=== PATIENT | female | born 1940 | race Caucasian/White ===

== ENCOUNTER 2016-10-24 20:02 | Inpatient (IN) | payer MEDICARE, OTHER ==
[~2016-10-24] VITALS: Ht 157.5 cm; Wt 69.9 kg
--- NOTE | 2016-10-24 20:02 | NUR ---
Patient to ER bed 01 to gown for evaluation. Side rails up. Report given to Sabino.
--- NOTE | 2016-10-24 20:04 | NUR ---
Note isabelyony in EDM - 10/24/16 at 2159 by LY Pt brought by ambulance from [facility] care facility, pt sent due to abnormal labs, pt currently treated for UTI with ABTs, non verbal, eyes open, responsive to touch, pt has trach O2 96%, G-tube intact, pedal pulses equal and strong, pt arrived with 20 gauge IV on L hand intact, VSS.
--- NOTE | 2016-10-24 20:04 | NUR ---
Pt brought by ambulance from extended care facility, pt sent due to abnormal labs, pt currently treated for UTI with ABTs, non verbal, eyes open, responsive to touch, pt has trach O2 96%, G-tube intact, pedal pulses equal and strong, pt arrived with 20 gauge IV on L hand intact, VSS.
--- NOTE | 2016-10-24 20:04 | NUR ---
Note anat in EDM - 10/24/16 at 2158 by LY Pt brought by ambulance from [facility] care facility, pt sent due to abnormal labs, pt currently treated for UTI with ABTs, non verbal, eyes open, responsive to touch, pt has trach O2 96%, G-tube intact, pedal pulses equal and strong, pt arrived with 20 gauge IV on L hand intact, VSS.
[2016-10-24 20:05] VITALS: BP 170/97; PULSE 73; RESP 23; TEMP 97.2; O2SAT 96
--- NOTE | 2016-10-24 20:15 | NUR ---
Allie hallyony in [facility] - 10/24/16 at [address] Rivera at bedside examining patient
--- NOTE | 2016-10-24 20:15 | NUR ---
Dr Rivera at bedside examining patient
[2016-10-24] MEDS ORDERED: ATOR20TA64 PO (20:45)
[2016-10-24] MEDS ORDERED: AMI200 PO (20:45)
[2016-10-24] MEDS ORDERED: FAMO20TA98 PO (20:45)
[2016-10-24] MEDS ORDERED: NITR-85 PO (20:45)
[2016-10-24] MEDS ORDERED: ASPI81TA2 PO (20:45)
[2016-10-24] MEDS ORDERED: INSU100V9 SUBCUT (20:45)
[2016-10-24] MEDS ORDERED: DOCU-144 PO (20:45)
[2016-10-24] MEDS ORDERED: LACT1CAP61 PO (20:45)
[2016-10-24] MEDS ORDERED: CARV3.1246 PO (20:45)
[2016-10-24] MEDS ORDERED: NACL 0.9% 1,000 ML IV ONE (21:01)
[2016-10-24 21:17] LABS: HEMATOCRIT 32.1 % (36-48); HEMOGLOBIN 10.9 g/dL (12.0-16.0); MEAN CORPUSCULAR HEMOGLOBIN 31 pg (27-31); MEAN CORPUSCULAR HGB CONC 34 % (32-36); MEAN CORPUSCULAR VOLUME 90 fL (79.0-98.0); PLATELET COUNT (AUTO) 140 K/uL (130-430); RED BLOOD CELL COUNT(AUTO) 3.56 MIL/uL (4.2-6.2); WHITE BLOOD COUNT (AUTO) 6.3 K/uL (4.8-10.8)
[2016-10-24 21:19] LABS: ANION GAP 7 (5-15); CHLORIDE 98 mmol/L (98-107); CREATININE 2.35 mg/dL (0.55-1.30); GLUCOSE 334 mg/dL (70-99); POTASSIUM 4.3 mmol/L (3.5-5.1); SODIUM SERUM 131 mmol/L (136-145); UREA NITROGEN, BLOOD 89 mg/dL (8-21)
[2016-10-24 21:22] LABS: PROTHROMBIN TIME 10.8 SECS (9.5-12.5)
[2016-10-24 21:34] LABS: ALANINE AMINOTRANSFERASE 31 U/L (12-78); ALBUMIN 1.7 g/dL (3.4-4.8); ASPARTATE AMINOTRANSFERASE 38 U/L (10-37); TOTAL BILIRUBIN 0.2 mg/dL (0.0-1.0); TOTAL PROTEIN, SERUM 7.4 g/dL (6.4-8.3)
[2016-10-24 21:45] LABS: BILIRUBIN,URINE NEGATIVE (NEGATIVE); BLOOD, URINE 3+ (NEGATIVE); CLARITY/URINE CLOUDY (CLEAR); COLOR,URINE YELLOW (YELLOW); GLUCOSE,URINE 2+ (NEGATIVE); KETONES,URINE NEGATIVE (NEGATIVE); LEUKOCYTE ESTERASE ,URINE 3+ (NEGATIVE); NITRITE, URINE NEGATIVE (NEGATIVE); PH,URINE 5.5 (5.0-8.0); PROTEIN URINE 1+ (NEGATIVE); UROBILINOGEN,URINE 0.2 (0.2-1.0)
[2016-10-24] MEDS ORDERED: INSULIN REGULAR, HUMAN 10 UNITS/0.1 ML INJ IVP ONE (22:00)
[2016-10-24 22:02] LABS: ATYPICAL LYMPHOCYTES % 0 % (0-0); BAND % (MANUAL) 1 % (0-6); BASOPHILS % (MANUAL) 0 % (0-2); EOSINOPHILS % (MANUAL) 0 % (0-7); LYMPHOCYTES % (MANUAL) 12 % (20-46); MONOCYTES % (MANUAL) 12 % (0-11)
--- NOTE | 2016-10-24 22:30 | NUR ---
16# FR Merino catheter with use of sterile technique. Immediate return of 100cc urine noted. Bedside drainage bag placed below level of bladder. Urine sample collected and sent to lab. Pt tolerated procedure . Patient arrived with merino in place, changed due to standard of practice prior to admission. Patient unable to toilet self.
--- NOTE | 2016-10-24 22:41 | NUR ---
Pt suction by RT, procedure well tolerated
--- NOTE | 2016-10-24 23:11 | NUR ---
Note anat in ED - 10/25/16 at 0134 by LY Patient will be admitted to care of Dr. East. Ad[facility] to Med[facility] Summary report printed. Report given to Rinku RAMÍREZ.
[2016-10-24] MEDS ORDERED: cefTRIAXone 1 GM IVPB PREMIX 50 ML IV ONE (23:15)
[2016-10-24 23:29] LABS: BACTERIA,URINE MODERATE /HPF (None Seen)
[2016-10-24 23:30] LABS: MUCUS,URINE None Seen /LPF (None Seen); URINE AMORPHOUS URATE 3+ /HPF (None Seen)
[2016-10-24] MEDS ORDERED: INSULIN REGULAR, HUMAN 100 UNITS/ML, 10 ML VIAL (novoLIN R) SUBCUT PRN (23:30)
[2016-10-24] MEDS ORDERED: NS 500 ML IV ONE (23:30)
--- NOTE | 2016-10-24 23:56 | NUR ---
Pt on stable condition, VSS, skin pink and warm, resposive to touch, Report given to Jarrod RAMÍREZ
[2016-10-25 00:21] VITALS: BP 148/65; PULSE 73; RESP 18; TEMP 98.6; O2SAT 96
--- NOTE | 2016-10-25 00:21 | NUR ---
ADMISSION NOTE: Received patient from ER via gurney under the care of Dr. East. Patient admitted with diagnosis of Acute Renal Failure . Patient is awake, alert to name and able to follow simple instructions . Patient oriented to hospital room, call light, but doesn't shows full understanding. No indication of pain or discomfort. Call light within reach.
--- NOTE | 2016-10-25 00:28 | NUR ---
Patient will be admitted to care of Dr. East. Admitted to Medsurg unit. Will go to room 102B. Summary report printed. Report given to Rinku RAMÍREZ.
--- NOTE | 2016-10-25 01:00 | NUR ---
ADMISSION ASSESSMENT PT. IS ALERT. NONVERBAL, TRACH. 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 LT. UPPER EXTREMITY HEMIPARESIS NOTED. TRACH R/A WITH O2 SAT. 96%. NO SOB NOTED @ THIS TIME. HAS G-TUBE CLAMPED. SITE IS CLEAR. FLUSHED AND IS PATENT. HAS F.CATH. CLEAR YELLOW URINE. CALL LIGHT WITHIN EASY ACCESS. NO DISTRESS NOTED @ THIS TIME.
--- NOTE | 2016-10-25 03:05 | NUR ---
ROUNDS PT. CONTINUE ON TRACH TO R/A. O2 SAT. IS 95%. NO RESPIRATORY DISTRESS NOTED @ THIS TIME.
[2016-10-25 04:19] VITALS: BP 138/62; PULSE 68; RESP 18; TEMP 98.6; O2SAT 99
--- NOTE | 2016-10-25 04:43 | NUR ---
PATIENT RESTING: Patient resting quietly. No acute distress noted. Vital signs within normal range.
--- NOTE | 2016-10-25 06:15 | NUR ---
BLOOD SUGAR 179 RECEIVED REGULAR INSULIN 2 UNITS SC.
--- NOTE | 2016-10-25 06:45 | NUR ---
CLOSING NOTES PT. NONVERBAL. CONTINUE WITH TRACH. R/A O2 SAT. 96%. NO SOB NOTED. SUCTIONED X1 THICK YELLOW SECRETIONS. HAS IV LT. HAND 24G WITH 0.9NS INFUSING @ 80ML/HR. SITE IS CLEAR. G-TUBE IS CLAMPED. NO DISTRESS NOTED @ THIS TIME. CALL LIGHT WITHIN EASY ACCESS.
--- NOTE | 2016-10-25 08:00 | NUR ---
received awake and in no discomfort.vss.turned and repositioned.fed breakfast but intake poor.lt hemiparesis noted.iv infusing.ra sat 96.trach intact and drsg.gtube clamped.merino with richard urine.continue to monitor and assist as needed
--- NOTE | 2016-10-25 08:00 | NUR ---
received awake and in no distress vss repositioned for breakfast g tub clamped and trach intact.merino patent.continue to monitor
[2016-10-25 08:41] LABS: BASOPHILS % (AUTO) 0.2 % (0.0-2.0); EOSINOPHILS # (AUTO) 0.1 K/uL (0.0-0.4); EOSINOPHILS % (AUTO) 0.7 % (0.0-4.0); HEMATOCRIT 32.2 % (36-48); HEMOGLOBIN 10.8 g/dL (12.0-16.0); LYMPHOCYTES # (AUTO) 0.7 K/uL (1.0-5.5); LYMPHOCYTES % (AUTO) 9.8 % (20.5-51.5); MEAN CORPUSCULAR HEMOGLOBIN 30 pg (27-31); MEAN CORPUSCULAR HGB CONC 34 % (32-36); MEAN CORPUSCULAR VOLUME 89 fL (79.0-98.0); MONOCYTES # (AUTO) 0.8 K/uL (0.0-1.0); MONOCYTES % (AUTO) 11.2 % (1.7-9.3); NEUTROPHILS # (AUTO) 5.8 K/uL (1.8-7.7); NEUTROPHILS % (AUTO) 78.1 % (40.0-70.0); PLATELET COUNT (AUTO) 143 K/uL (130-430); RED BLOOD CELL COUNT(AUTO) 3.61 MIL/uL (4.2-6.2); RED CELL DISTRIBUTION WIDTH 15.6 % (9.0-15.0); WHITE BLOOD COUNT (AUTO) 7.4 K/uL (4.8-10.8)
[2016-10-25 08:58] LABS: ANION GAP 7 (5-15); CALCIUM 9.3 mg/dL (8.4-11.0); CHLORIDE 105 mmol/L (98-107); GLUCOSE 162 mg/dL (70-99); POTASSIUM 4.2 mmol/L (3.5-5.1); SODIUM SERUM 139 mmol/L (136-145); UREA NITROGEN, BLOOD 78 mg/dL (8-21)
--- NOTE | 2016-10-25 09:36 | NUR ---
Nutrition Update Olvin Scale 14 noted. Pt admitted for ARF. Diet: [facility] BMI: N/A RD to follow per nutrition care standards.
[2016-10-25] MEDS ORDERED: MORPHINE 2 MG/ML INJ. SYRINGE IVP PRN (12:00)
[2016-10-25] MEDS ORDERED: POTASSIUM CHLORIDE 10 MEQ TAB.PRT.SR PO PRN (12:00)
[2016-10-25] MEDS ORDERED: ACETAMINOPHEN 325 MG TABLET PO PRN (12:00)
[2016-10-25] MEDS ORDERED: ZOLPIDEM TARTRATE 5 MG TABLET PO PRN (12:00)
[2016-10-25] MEDS ORDERED: DOCUSATE SODIUM 100 MG CAPSULE PO PRN (12:00)
[2016-10-25] MEDS ORDERED: LORazepam 2 MG/ML VIAL IVP PRN (12:00)
[2016-10-25] MEDS ORDERED: MAGNESIUM SULFATE 50 ML IV PRN (12:00)
[2016-10-25] MEDS ORDERED: ONDANSETRON HCL 4 MG/2 ML VIAL IVP PRN (12:00)
[2016-10-25] MEDS ORDERED: DEXTROSE 50% JECT 50 ML DISP.SYRIN IVP PRN (12:00)
[2016-10-25 12:36] VITALS: BP 172/95; PULSE 74; RESP 19; TEMP 97.6; O2SAT 98
[2016-10-25 16:14] VITALS: BP 166/75; PULSE 68; RESP 18; TEMP 97.8; O2SAT 99
--- NOTE | 2016-10-25 16:38 | NUR ---
NEPHROLOGY CONSULT Spoke with Valentina regarding request for consultation with Dr. Gauthier ([phone]) for reason: CHANDA
--- NOTE | 2016-10-25 17:16 | NUR ---
RT CALLED TO ASSIST WITH TRACH.SHE IS NOT ON THEIR LIST BUT TRACH CARE DONE.PT IN NO DISTRESS.TO RECEIVE PUREED DIET FOR DINNER.FAMILY AT BEDSIDE TO ASSIST WITH FEEDING.TURNED Q2H AND NO COMPLAINT OF PAIN
[2016-10-25] MEDS: NACL 0.9% 1,000 ML IV SCH (18:21)
[2016-10-25 20:10] VITALS: BP 156/86; PULSE 69; RESP 18; TEMP 97.8; O2SAT 99
--- NOTE | 2016-10-25 20:10 | NUR ---
INITIAL NOTES: PT IS AWAKE, NOT IN ANY ACUTE DISTRESS; VITALS ARE STABLE ; WILL RECHECK BP LATER ; PERSIAN SPEAKING; NOTICED THAT PT IS ABLE TO MOVE HER MARY ARMS AND R LEG ; BUT WEAK ; ASSESSMENT DONE ; PT HAS TRACH -TO ROOM AIR ; PT ISSATING WELL ; G TUBE IS CLAMPED ; PT IS ABLE TO TAKE PUREED DIET ; BED IN LOW AND LOCK POSITION ; BED ALARM IS ON .CALL LOMBARDO IN REACH; INSTRUCTED TO CALL FOR ANY HELP; WILL CONTINUE TO MONITOR.
[2016-10-25] MEDS: DOCUSATE SODIUM 100 MG CAPSULE PO SCH (20:50)
[2016-10-25] MEDS: CARVEDILOL 3.125 MG TABLET (COREG) PO SCH (20:51)
[2016-10-25] MEDS: ATORVASTATIN 20 MG TABLET PO SCH (20:51)
[2016-10-25] MEDS: HEPARIN SODIUM,PORCINE 5000 UNITS/ML VIAL SUBCUT SCH (20:52)
[2016-10-25] MEDS: INSULIN ASPART 100 UNITS/ML, 10 ML VIAL (NovoLOG) SUBCUT PRN (20:54)
--- NOTE | 2016-10-25 21:00 | NUR ---
MEDICATION: DUE MEDS CRUSHED AND GIVEN WITH APPLE SAUCE ; PT IS COMFORTABLE ;NOT IN ANY ACUTE DISTRESS; SON AT BEDSIDE ; WILL CONTINUE TO MONITOR.
[2016-10-25] MEDS: cefTRIAXone 1 GM in D5W 50 ML IV SCH (22:24)
--- NOTE | 2016-10-25 23:00 | NUR ---
RN NOTES: PT IS COMFORTABLE ; NOT IN ANY DISTRESS; VITALS ARE STABLE ; WILL CONTINUE TO MONITOR.
[2016-10-26] VITALS: BP 118/70; PULSE 63; RESP 16; TEMP 98.7; O2SAT 96
--- NOTE | 2016-10-26 01:00 | NUR ---
RN ROUNDS: PT IS SLEEPING; NOT IN ANY ACUTE DISTRESS; WILL CONTINUE TO MONITOR.
--- NOTE | 2016-10-26 03:00 | NUR ---
RN ROUNDS: PT IS SLEEPING; NOT IN ANY DISTRESS; WILL CONTINUE TO MONITOR.
[2016-10-26 04:21] VITALS: BP 120/74; PULSE 62; RESP 16; TEMP 97.8; O2SAT 98
--- NOTE | 2016-10-26 05:04 | NUR ---
SPONGE BATH: SPONGE BATH AND PERICARE GIVEN ; LINEN AND GOWN CHANGED ; PT TURNED AND REPOSITIONED; WILL CONTINUE TO MONITOR.
--- NOTE | 2016-10-26 06:00 | NUR ---
RN NOTES: BS 89, NO INSULIN COVERAGE NEEDED ; PT IS COMFORTABLE .
[2016-10-26] MEDS: INSULIN ASPART 100 UNITS/ML, 10 ML VIAL (NovoLOG) SUBCUT PRN ×4 (06:09→20:51)
[2016-10-26 07:15] LABS: BASOPHILS % (AUTO) 0.2 % (0.0-2.0); EOSINOPHILS # (AUTO) 0.2 K/uL (0.0-0.4); EOSINOPHILS % (AUTO) 1.6 % (0.0-4.0); HEMOGLOBIN 10.5 g/dL (12.0-16.0); LYMPHOCYTES % (AUTO) 9.9 % (20.5-51.5); MEAN CORPUSCULAR HEMOGLOBIN 30 pg (27-31); MEAN CORPUSCULAR HGB CONC 33 % (32-36); MEAN CORPUSCULAR VOLUME 92 fL (79.0-98.0); MONOCYTES # (AUTO) 0.9 K/uL (0.0-1.0); MONOCYTES % (AUTO) 9.8 % (1.7-9.3); NEUTROPHILS # (AUTO) 7.6 K/uL (1.8-7.7); NEUTROPHILS % (AUTO) 78.5 % (40.0-70.0); PLATELET COUNT (AUTO) 156 K/uL (130-430); RED BLOOD CELL COUNT(AUTO) 3.48 MIL/uL (4.2-6.2); RED CELL DISTRIBUTION WIDTH 16.6 % (9.0-15.0)
[2016-10-26 07:25] LABS: WHITE BLOOD COUNT (AUTO) 9.7 K/uL (4.8-10.8)
--- NOTE | 2016-10-26 07:25 | NUR ---
CLOSING NOTES: REPORT GIVEN TO RN AT BEDSIDE , PT IS SLEEPING, NOT IN ANY ACUTE DISTRESS; NO SIGNIFICANT CHANGES IN THE CONDITION.
[2016-10-26 07:26] LABS: ANION GAP 7 (5-15); CALCIUM 9.2 mg/dL (8.4-11.0); CHLORIDE 107 mmol/L (98-107); CREATINE KINASE, TOTAL 28 U/L (26-192); CREATININE 1.69 mg/dL (0.55-1.30); GLUCOSE 91 mg/dL (70-99); POTASSIUM 4.1 mmol/L (3.5-5.1); SODIUM SERUM 141 mmol/L (136-145); UREA NITROGEN, BLOOD 61 mg/dL (8-21)
[2016-10-26 08:00] VITALS: BP 165/75; PULSE 60; RESP 18; TEMP 98; O2SAT 97
--- NOTE | 2016-10-26 08:00 | NUR ---
initial notes rec patient awake , alert non verbally responsive but follows command. hob elevated with a trache and no sob noted. pt was suctioned with small amount of whitish phlegm noted. resp easy and unlabored. bed in low position and side rails up and locked. call light within reached.fall/safety measures reinforced. will continue to monitor patient.
[2016-10-26] MEDS: DOCUSATE SODIUM 100 MG CAPSULE PO SCH ×2 (10:04→20:26)
[2016-10-26] MEDS: CARVEDILOL 3.125 MG TABLET (COREG) PO SCH ×2 (10:04→20:25)
[2016-10-26] MEDS: AMIODARONE HCL 200 MG TABLET PO SCH (10:05)
[2016-10-26] MEDS: HEPARIN SODIUM,PORCINE 5000 UNITS/ML VIAL SUBCUT SCH ×2 (10:07→20:48)
--- NOTE | 2016-10-26 10:30 | NUR ---
rounds due meds given as ordered. gt is clamped and with 10 cc residual only. turned repositioned for comfort.
[2016-10-26 12:31] VITALS: BP 155/74; PULSE 62; RESP 20; TEMP 97.5; O2SAT 95
--- NOTE | 2016-10-26 13:00 | NUR ---
rounds no hypo hyperglycemic reaction noted. no sob noted. suctioned patient.
[2016-10-26 13:26] VITALS: Ht 157.5 cm; Wt 69.9 kg
--- NOTE | 2016-10-26 14:00 | NUR ---
rounds turned repositi.oned for comfort. was transferred to an air loss bed to prevent skin breakdown. resting comfortably
--- NOTE | 2016-10-26 15:58 | NUR ---
rounds resting quietly at this time. no sob noted.. sleeping at intervals.
[2016-10-26 16:01] VITALS: BP 124/58; PULSE 69; RESP 18; TEMP 97.2; O2SAT 92
--- NOTE | 2016-10-26 18:00 | NUR ---
rounds no hypo hyperglycemic reaction noted. sleeps at intervals. gt site was cleaned with ns and applied drain sponge.
[2016-10-26] MEDS: NACL 0.9% 1,000 ML IV SCH (18:57)
--- NOTE | 2016-10-26 19:00 | NUR ---
closing notes dr coker was notified re mrsa of the nares and with order. daughter at the bedside and informed by mary re the mrsa. no sob noted. on contact isolation
--- NOTE | 2016-10-26 19:02 | NUR ---
paged for Dr East, dialed . s/w [place].
[2016-10-26 20:00] VITALS: BP 178/80; PULSE 67; RESP 17; TEMP 97.1; O2SAT 97
--- NOTE | 2016-10-26 20:04 | NUR ---
opening note received report from day shift RN. Patient is alert and oriented X2, in supine position, call light within reach, friend participating in care at bedside. No complaints of pain at this time, BP 178/80, HR67, T96.9, RR 15 non-labored and normal depth. frequent visual checks to be made, continue to monitor
[2016-10-26] MEDS: ATORVASTATIN 20 MG TABLET PO SCH (20:25)
[2016-10-26] MEDS: MUPIROCIN 2% TOPICAL OINTMENT 22 GM TP SCH (20:52)
[2016-10-26] MEDS: cefTRIAXone 1 GM in D5W 50 ML IV SCH (22:15)
--- NOTE | 2016-10-26 22:29 | NUR ---
rounds Patient is in supine position, turned to left, supported with pillows. No pain behaviors noted, indwelling catheter is flowing well to gravity. bed in low position, frequent visual checks made. No signs of respiratory distress noted at this time, HOB 30* for aspiration precautions. Continue to monitor
[2016-10-27 00:38] VITALS: BP 164/86; PULSE 66; RESP 16; TEMP 98.6; O2SAT 98
[2016-10-27 04:00] VITALS: BP 158/78; PULSE 72; RESP 17; TEMP 98.4; O2SAT 100
[2016-10-27] MEDS: INSULIN ASPART 100 UNITS/ML, 10 ML VIAL (NovoLOG) SUBCUT PRN ×3 (06:12→16:19)
--- NOTE | 2016-10-27 06:52 | NUR ---
closing note Patient is in supine position, call light in reach, bed in low position, no pain behaviors at this time. report given to oncoming nurse, care endorsed
[2016-10-27 07:25] LABS: ANION GAP 6 (5-15); CALCIUM 8.9 mg/dL (8.4-11.0); CHLORIDE 109 mmol/L (98-107); CREATININE 1.49 mg/dL (0.55-1.30); GLUCOSE 200 mg/dL (70-99); POTASSIUM 4.2 mmol/L (3.5-5.1); SODIUM SERUM 142 mmol/L (136-145); UREA NITROGEN, BLOOD 43 mg/dL (8-21)
[2016-10-27 07:29] LABS: BASOPHILS % (AUTO) 0.2 % (0.0-2.0); EOSINOPHILS # (AUTO) 0.1 K/uL (0.0-0.4); EOSINOPHILS % (AUTO) 1.1 % (0.0-4.0); HEMATOCRIT 31.7 % (36-48); HEMOGLOBIN 10.6 g/dL (12.0-16.0); LYMPHOCYTES # (AUTO) 0.8 K/uL (1.0-5.5); LYMPHOCYTES % (AUTO) 10.4 % (20.5-51.5); MEAN CORPUSCULAR HEMOGLOBIN 30 pg (27-31); MEAN CORPUSCULAR HGB CONC 34 % (32-36); MEAN CORPUSCULAR VOLUME 91 fL (79.0-98.0); MONOCYTES # (AUTO) 0.6 K/uL (0.0-1.0); MONOCYTES % (AUTO) 7.8 % (1.7-9.3); NEUTROPHILS # (AUTO) 6.4 K/uL (1.8-7.7); NEUTROPHILS % (AUTO) 80.5 % (40.0-70.0); PLATELET COUNT (AUTO) 176 K/uL (130-430); RED BLOOD CELL COUNT(AUTO) 3.49 MIL/uL (4.2-6.2); RED CELL DISTRIBUTION WIDTH 16.5 % (9.0-15.0); WHITE BLOOD COUNT (AUTO) 7.9 K/uL (4.8-10.8)
--- NOTE | 2016-10-27 07:30 | NUR ---
PATIENT AWAKE CONFUSED NONVERBAL NO SIGN OF DISTRESS OR PAIN NOTED, SKIN INTACT, IV SITE LEFT HAND 40 NS FLUID, G TUBE PATENT, ON ROOM AIR, TRACH IN PLACE NONPRODUCTIVE COUGH, FLOOD CATHETER YELLOW URINE, LYING IN BED HOB ELEVATED BED IN LOW POSITION CALL LIGHT IN APCLE SIDE RAILS UP,
[2016-10-27] MEDS: DOCUSATE SODIUM 100 MG CAPSULE PO SCH (08:50)
[2016-10-27] MEDS: CARVEDILOL 3.125 MG TABLET (COREG) PO SCH (08:50)
[2016-10-27] MEDS: HEPARIN SODIUM,PORCINE 5000 UNITS/ML VIAL SUBCUT SCH (08:52)
[2016-10-27] MEDS: MUPIROCIN 2% TOPICAL OINTMENT 22 GM TP SCH (08:53)
[2016-10-27] MEDS: AMIODARONE HCL 200 MG TABLET PO SCH (09:21)
[2016-10-27 11:22] VITALS: BP 108/58; PULSE 82; RESP 17; TEMP 97.6; O2SAT 100
[2016-10-27 12:00] VITALS: BP 188/81; PULSE 62; RESP 16; TEMP 97.4; O2SAT 98
--- NOTE | 2016-10-27 12:09 | NUR ---
PATIENT SLEEPING EASILY AROUSABLE NO SIGN OF PAIN, BS 206 GAVE 3 UNITS OF ASPARTE, ON ROOM AIR DR BURNS ORDER FOR TRANSFER BACK TO [facility], PATIENT LYING HOB ELEVATED ON LEFT SIDE BED IN LOW POSITION CALL LIGHT IN APCLE SIDE RAILS UP
--- NOTE | 2016-10-27 15:14 | NUR ---
CASE MANAGEMENT INFORMED HAVE BED 27A FOR PATIENT TO GO BACK TO EXTENDED CARE PER PHYSICIAN ORDER, GAVE REPORT TO KELLY RAMÍREZ AT FACILITY, INFORMATION TECHNOLOGY ADVISOR TIME TO BE AROUND 7PM VIA AMBULANCE, PATIENT VITALS WNL, NO SIGN OF DISTRESS OR PAIN NOTED, TRACH INTACT NO COUGHING AT THIS TIME, G TUBE CLAMPED IN PLACE, IV SITE LEFT HAND INTACT, FLOOD CATHER IN PALCE YELLOW URINE OUTPUT, PATIENT LYING SUPINE HOB ELEVATED BED IN LOW POSITION CALL LIGHT IN APCLE SIDE RAILS UP
[2016-10-27] MEDS ORDERED: amLODIPine BESYLATE 10 MG TABLET PO ONE (15:45)
[2016-10-27 16:54] VITALS: BP 199/78; PULSE 60; RESP 16; TEMP 97.8; O2SAT 98
[2016-10-27] MEDS: NACL 0.9% 1,000 ML IV SCH (17:23)
[2016-10-27 17:40] VITALS: BP 155/85; PULSE 68; RESP 18; TEMP 97.9; O2SAT 97
--- NOTE | 2016-10-27 17:45 | NUR ---
AFTER GAVE NORVASC PER MD ORDER BP 155/85, NO SIGN OF COMPLICATIONS PATIENT ALERT AWAKE
--- NOTE | 2016-10-27 18:13 | NUR ---
PATIENT ALERT AWAKE NO COMPLAINT SING OF PAIN OR SOB, NO ANXIETY NOTED, NONVERBAL, TRACH IN PLACE ON ROOM AIR OXYGEN SAT 96%, LYING IN BED HOB ELEVATED, BS 219 GAVE 4 UNITS OF ASPARTE INSULIN, BED IN LOW POSITION CALL LIGHT IN PLACE SIDE RAILS UP
--- NOTE | 2016-10-27 18:50 | NUR ---
DC ORDERS AND PACKET GIVEN FROM CM, CHECKED PATIENTS VITALS BP 182/85, PAGED DOCTOR KATY FOR POSSIBLE ORDERS NO OTHER SIGN OF DISTRESS OR COMPLICATIONS, ENDORSED PAGE OF MD TO NIGHT NURSE MERA AND AWARE THAT TRANSPORT WILL BE ARRIVING AROUND 8PM FOR POSSIBLE INSTRUMENT LENS GENERATOR
[2016-10-27] MEDS ORDERED: cloNIDine HCL 0.2 MG TABLET PO PRN (20:00)
--- NOTE | 2016-10-27 20:22 | NUR ---
D/C Patient Patient given medication reconciliation form and D/C instructions. Exit Care provided. Patient's daughter (Mallika) verbalized understanding. MD discussed with patient and family the results and treatment provided. Non-Ambulatory for discharge back to [facility]. Patient in stable condition, ID band removed. IV catheter left on left hand 24g saline locked. pt to continue Rocephin antibiotic until 10/30/16. transported via [facility]. All belongings sent with patient.
[2016-10-28] MEDS ORDERED: amLODIPine BESYLATE 10 MG TABLET PO SCH (09:00)
== END 2016-10-27 20:22 | DRG 460 ==
LOC: SED 20:02 → SMU 23:28
PROVIDERS: ADMIT General Practice; ATTEND General Practice
DX: N17.0 Acute kidney failure with tubular necrosis (principal); Z99.11 Dependence on respirator [ventilator] status; E44.0 Moderate protein-calorie malnutrition; J96.10 Chronic respiratory failure, unspecified whether with hypoxia or hypercapnia; E87.2 Acidosis; Z93.0 Tracheostomy status; E11.21 Type 2 diabetes mellitus with diabetic nephropathy; I48.0 Paroxysmal atrial fibrillation; E11.65 Type 2 diabetes mellitus with hyperglycemia; I10 Essential (primary) hypertension; E87.1 Hypo-osmolality and hyponatremia; N39.0 Urinary tract infection, site not specified; E78.5 Hyperlipidemia, unspecified; D63.8 Anemia in other chronic diseases classified elsewhere; I25.10 Atherosclerotic heart disease of native coronary artery without angina pectoris; J44.9 Chronic obstructive pulmonary disease, unspecified; K21.9 Gastro-esophageal reflux disease without esophagitis; N31.9 Neuromuscular dysfunction of bladder, unspecified; Z86.73 Personal history of transient ischemic attack (TIA), and cerebral infarction without residual deficits; Z88.2 Allergy status to sulfonamides; Z79.82 Long term (current) use of aspirin; Z79.4 Long term (current) use of insulin; Z79.899 Other long term (current) drug therapy; Z22.322 Carrier or suspected carrier of Methicillin resistant Staphylococcus aureus
CPT/HCPCS: 36415; 71010; 76770; 80048; 80053; 81000-TC; 82550-TC; 82962; 83605; 83735-TC; 83880; 84302-TC; 85007; 85025; 85027; 85610-TC; 85730-TC; 87040-TC; 87081; 87086; 87186-TC; 96361; 96365; 96375; 99285; J0696; J1644; J1815; J7030; J7060; J7120